=== PATIENT | female | born 1960 | race African-American/Black ===

== ENCOUNTER → 2017-01-02 | Outpatient (CLI) | payer BC ==
--- NOTE | 2017-01-04 09:16 | RAD ---
EXAM: DIGITAL SCREEN BILAT W/CAD. HISTORY: Screening. COMPARISON: 11/28/2015 and 07/05/2014. FINDINGS: Digital mammography was performed. Computer-aided detection (CAD) was utilized. The breast parenchyma is primarily fatty (tissue density A). No dominant suspicious mass, suspicious microcalcifications, or architectural distortion is identified. IMPRESSION: No mammographic evidence of malignancy. BI-RADS CATEGORY: 1 NEGATIVE RECOMMENDED FOLLOW-UP: 12M 12 MONTH FOLLOW-UP PQRS compliance statement: Patient information was entered into a reminder system with a target due date for the next mammogram. Mammography is a sensitive method for finding small breast cancers, but it does not detect them all and is not a substitute for careful clinical examination. A negative mammogram does not negate a clinically suspicious finding and should not result in delay in biopsying a clinically suspicious abnormality. "Our facility is accredited by the [employer] Mammography [employer]."
== END | disposition home or self-care (01) ==
LOC: MAMMO 09:21
PROVIDERS: ATTEND Internal Medicine
DX: Z12.31 Encounter for screening mammogram for malignant neoplasm of breast (principal)
CPT/HCPCS: G0202; 77067

== ENCOUNTER → 2018-02-01 | Outpatient (CLI) | payer BC | END | disposition home or self-care (01) | LOC: MAMMO 13:28 | DX: Z12.31 Encounter for screening mammogram for malignant neoplasm of breast (principal) | CPT/HCPCS: 77067 ==

== ENCOUNTER → 2019-02-16 | Outpatient (CLI) | payer BC, OTHER ==
--- NOTE | 2019-02-16 16:24 | RAD ---
DATE: 02/16/2019 EXAM: MAMMO MIKE SCREENING BILATERAL HISTORY: Routine screening COMPARISON: 02/01/2018 This study was interpreted with the benefit of Computerized Aided Detection (CAD). Breast Density: SCATTERED The breast parenchyma shows scattered fibroglandular densities. Breast parenchyma level B. FINDINGS: 2-D and 3-D tomosynthesis imaging was performed in CC and MLO projections. There are several small smooth nodules in both breasts, better demonstrated on the current tomosynthesis imaging. Multiple smooth nodule such as this tend to be benign. No spiculated mass or architectural distortion is seen. Benign type calcifications are noted. No suspicious microcalcifications are evident. IMPRESSION: No mammographic evidence of malignancy either breast. BI-RADS CATEGORY: 2 BENIGN FINDING(S) RECOMMENDED FOLLOW-UP: 12M 12 MONTH FOLLOW-UP PQRS compliance statement: Patient information was entered into a reminder system with a target due date for the next mammogram. Mammography is a sensitive method for finding small breast cancers, but it does not detect them all and is not a substitute for careful clinical examination. A negative mammogram does not negate a clinically suspicious finding and should not result in delay in biopsying a clinically suspicious abnormality. "Our facility is accredited by the [employer] Mammography [employer]."
== END | disposition home or self-care (01) ==
LOC: MAMMO 12:52
PROVIDERS: ATTEND Family Medicine
DX: Z12.31 Encounter for screening mammogram for malignant neoplasm of breast (principal); N63.20 Unspecified lump in the left breast, unspecified quadrant; N63.10 Unspecified lump in the right breast, unspecified quadrant
CPT/HCPCS: 77063; 77067

== ENCOUNTER → 2022-01-15 | Outpatient (CLI) | payer OTHER ==
--- NOTE | 2022-01-15 13:49 | RAD ---
INDICATION: 61 years of age asymptomatic female patient presents for screening mammography. No person al or family history of breast cancer. TECHNIQUE: Full field craniocaudal and mediolateral oblique images of both breasts were obtained usi ng digital technique with tomosynthesis and also analyzed with computer-aided detection software. COMPARISON: Prior mammographic imaging dating back to 07/05/2014. BREAST COMPOSITION: Category B: There are scattered fibroglandular densities. FINDINGS: Right breast: New 5 mm round hypodense mass at the 11:00 position 12 cm deep to the nipple. This appe ars to localize superficially. No suspicious calcifications or architectural distortion. Additional c ircumscribed scattered masses appear stable from multiple priors. Left breast: No suspicious masses, microcalcifications or architectural distortion is present to sugg est malignancy in either breast. Scattered circumscribed small masses are stable from multiple priors . The visualized axillae are unremarkable. IMPRESSION: Indeterminate 5 mm round hypodense mass at the 11:00 position, 12 cm deep to the nipple i n the right breast. Additional evaluation with targeted right breast ultrasound is recommended. RECOMMENDATION: The patient will be contacted to return for additional imaging and a supplemental rep ort will follow. BIRADS 0: INCOMPLETE - NEED ADDITIONAL IMAGING EVALUATION AND/OR PRIOR MAMMOGRAMS FOR COMPARISON. This study was interpreted with the benefit of Computerized Aided Detection (CAD). Patient information is entered into the reminder system with a target due date for the next screening mammogram. Mammography is the most sensitive method for finding small breast cancers, but it does not detect the m all and is not a substitute for careful clinical examination. A negative mammogram does not negate a clinically suspicious finding and should not result in delay in biopsying a clinically suspicious a bnormality. "Our facility is accredited by the [employer] Mammography [employer]." Electronically signed by: Jesús Holman DO (01/15/2022 1:47 PM) [id number]
== END ==
LOC: MAMMO 12:55
PROVIDERS: ATTEND Family Medicine
DX: Z12.31 Encounter for screening mammogram for malignant neoplasm of breast (principal); N64.89 Other specified disorders of breast
CPT/HCPCS: 77063; 77067

== ENCOUNTER → 2022-02-09 | Outpatient (CLI) | payer OTHER ==
--- NOTE | 2022-02-09 13:21 | RAD ---
EXAM: Right breast sonogram. HISTORY: 61-year-old female presents for reduction of nodularity within the right breast demonstrated on a screening mammogram dated 01/15/2022. TECHNIQUE: Sonographic imaging of the right breast targeted to the site of mammographic abnormality w as performed. COMPARISON: 02/14/2022. FINDINGS: There is a 5.7 mm heterogeneous predominantly hypoechoic lesion within the subcutaneous sof t tissues of the right breast at the 11:00 position 10 cm from the nipple, corresponding with the yasir mographic finding of concern. This appears to communicate with the skin and demonstrates no internal blood flow. No additional lesion is seen in this location. There is a 9 mm right axillary lymph node with prominent cortex. IMPRESSION: 1. 5.7 mm heterogeneous lesion within the subcutaneous soft tissues of the right breast at the 11:00 position 10 cm from the nipple, corresponding with the mammographic finding of concern. The absence o f internal blood flow and location of this finding favors a benign complicated sebaceous cyst. Sonogr aphic follow-up in 3 months is recommended. If the lesion is more conspicuous on the follow-up exam, it is amenable to sonographic guided tissue sampling for definitive diagnosis. 2. Subcentimeter right axillary lymph node with prominent cortex, possibly reactive in etiology. Atte ntion the time of follow-up is recommended. 3. BI-RADS Category 3: Probably benign finding(s). Short term follow up with a right breast sonogram in 3 months is recommended. Electronically signed by: Ilsa Koch MD (02/09/2022 1:19 PM) [id number]
== END ==
LOC: US 12:20
PROVIDERS: ATTEND Family Medicine
DX: R92.8 Other abnormal and inconclusive findings on diagnostic imaging of breast (principal); N64.89 Other specified disorders of breast
CPT/HCPCS: 76641